=== PATIENT | female | born 1975 | race Caucasian/White ===

== ENCOUNTER → 2017-04-12 | Outpatient (CLI) | payer BC ==
[2017-04-19 15:04] LABS: HPV 16 Not Detected (NOTDET); HPV 18 Not Detected (NOTDET)
== END ==
LOC: MW.CHOBGYN 15:31
PROVIDERS: ATTEND Advanced Practice Midwife
DX: Z01.419 Encounter for gynecological examination (general) (routine) without abnormal findings (principal); L29.8 Other pruritus; F32.9 Major depressive disorder, single episode, unspecified; I10 Essential (primary) hypertension; E28.2 Polycystic ovarian syndrome; Z79.899 Other long term (current) drug therapy; Z88.1 Allergy status to other antibiotic agents; Z80.3 Family history of malignant neoplasm of breast
CPT/HCPCS: 87480; 87510; 87624; 87660; G0145

== ENCOUNTER 2023-12-29 08:24 | Day surgery (SDC) | payer BC ==
[~2023-12-29 08:24] MED LIST: Sodium Chloride 0.9% 10 ML Syringe FLUSH PRN; Sodium Chloride 0.9% 2.5 ML Syringe FLUSH PRN; Sodium Chloride 0.9% 20 ML SDV IV PRN
[2023-12-29] MEDS: Lactated Ringers 1,000 ML IV SCH (08:46)
[2023-12-29] MEDS ORDERED: propofoL 50 ML ONE (08:55)
[2023-12-29 10:01] VITALS: BP 107/65; PULSE 84
== END 2023-12-29 10:30 | disposition home or self-care (01) ==
LOC: MW.SDS 08:24
PROVIDERS: ATTEND Surgery
DX: Z12.11 Encounter for screening for malignant neoplasm of colon (principal); I10 Essential (primary) hypertension; F32.A Depression, unspecified; F41.9 Anxiety disorder, unspecified; K21.9 Gastro-esophageal reflux disease without esophagitis; Z79.899 Other long term (current) drug therapy; Z88.1 Allergy status to other antibiotic agents
CPT/HCPCS: 45378; J2704; J7120

== ENCOUNTER 2024-02-22 11:53 | Day surgery (SDC) | payer BC ==
[~2024-02-22 11:53] MED LIST changes: +Albuterol 0.083% 2.5 MG/3 ML Neb Soln NEB PRN; +HYDROmorphone 1 MG/ML Syringe IVPUSH PRN; +Morphine 2 MG/ML SYRINGE IVPUSH PRN; +Naloxone 0.4 MG/ML SDV IVPUSH PRN; -Sodium Chloride 0.9% 10 ML Syringe FLUSH PRN; -Sodium Chloride 0.9% 2.5 ML Syringe FLUSH PRN; -Sodium Chloride 0.9% 20 ML SDV IV PRN; +ceFAZolin 2 GM in Sodium Chloride 0.9% 50 ML IV ONE; +droPERidol 5 MG/2 ML SDV IVPUSH PRN; +fentaNYL 50 MCG/ML SDV IVPUSH PRN
[2024-02-22] MEDS: Lactated Ringers 1,000 ML IV SCH (12:40)
[2024-02-22] MEDS: Scopalamine 1mg/3day Transdermal Patch TOP ONE (12:45)
[2024-02-22] MEDS: Scopalamine 1mg/3day Transdermal Patch ONE (12:58)
[2024-02-22] MEDS ORDERED: Bupivacaine 0.5%/EPINEPHrine 1:200,000 30 ML SDV ONE (13:00)
[2024-02-22] MEDS ORDERED: Lidocaine 2% 5 ML SDV ONE (13:26)
[2024-02-22] MEDS ORDERED: fentaNYL 100 MCG/2 ML SDV ONE (13:26)
[2024-02-22] MEDS ORDERED: Dexamethasone 4 MG/ML 5 ML MDV ONE (13:26)
[2024-02-22] MEDS ORDERED: Ondansetron 4 MG/2 ML SDV ONE (13:26)
[2024-02-22] MEDS ORDERED: Propofol 200 MG/20 ML SDV ONE (13:26)
[2024-02-22] MEDS ORDERED: Ketorolac 30 MG/ML SDV ONE (13:26)
[2024-02-22] MEDS ORDERED: ceFAZolin 2 GM Vial ONE (13:58)
[2024-02-22] MEDS ORDERED: Morphine 10 MG/ML SDV ONE (14:32)
[2024-02-22] MEDS: Ondansetron 4 MG/2 ML SDV IVPUSH PRN (15:43)
[2024-02-22 16:23] VITALS: PULSE 56
[2024-02-22] MEDS: Metoclopramide 10 MG/2 ML SDV IVPUSH PRN (16:37)
[2024-02-22 16:39] VITALS: BP 121/71
== END 2024-02-22 17:15 | disposition home or self-care (01) ==
LOC: MW.SDS 11:53
PROVIDERS: ATTEND Orthopaedic Surgery
DX: S83.242A Other tear of medial meniscus, current injury, left knee, initial encounter (principal); I10 Essential (primary) hypertension; G47.33 Obstructive sleep apnea (adult) (pediatric); Z79.899 Other long term (current) drug therapy; Z88.1 Allergy status to other antibiotic agents; X58.XXXA Exposure to other specified factors, initial encounter
CPT/HCPCS: 29881; 81025; A9270; J0690; J1100; J1885; J2270; J2405; J2704; J2765; J3010; J7120; J3490